=== PATIENT | female | born 1940 | race African-American/Black ===

== ENCOUNTER 2020-05-19 16:19 | Emergency (ER) | payer MEDICARE, OTHER ==
[~2020-05-19] VITALS: Ht 162.6 cm; Wt 61.2 kg
[~2020-05-19 16:19] MED LIST: ASPIR-LOW81 MG PO; ATENOLOL100 MG PO; BENADRYL25 MG ORAL; CALCIUM MAGNES1 EAC2 PO; FOLIC ACID0.4 MG ORAL; HYZAAR 100-12.1 EACH PO; IBUPROFEN600 MG ORAL; IBUPROFEN600 MG PO; LIPITOR20 MG PO; MEDROL DOSEPAK4 MG PO; NORCO 5-325 TA1 EACH ORAL; PERCOCET 5-3251 EACH ORAL; PREDNISONE20 MG ORAL; SOMA350 MG PO; VALIUM5 MG ORAL; VICODIN 5-5001 EACH PO; VITAMIN B COMP1 EAC2 ORAL; VITAMIN B-121000 MCG PO; VITAMIN D32000 UNI2 PO
--- NOTE | 2020-05-19 16:58 | NUR ---
ED Nurse Note: Patient presents to ER due to right arm/hand swelling x 2 weeks; reports no injury. Patient has swelling over the right hand/arm without redness or warmth. Patient c/o 4/10, pain on the right wrist. Guarding the area noted. Reports no CP, SOB or dyspnea. Reports no swelling in BLE. Patient awake, alert, oriented x 4. Regular, unlabored breathing noted. Awaiting for vascular u/s.
[2020-05-19] MEDS ORDERED: VITAMIN D3 COM1 EACH PO (17:19)
[2020-05-19] MEDS ORDERED: NIFEDIPINE ER60 M3 ORAL (17:19)
--- NOTE | 2020-05-19 18:03 | NUR ---
ED Nurse Note: U/S tech at bedside.
--- NOTE | 2020-05-19 18:06 | Diagnostic Imaging Report ---
Indication: Pain, swelling Technique: 3 views hand Comparison: none Findings: There is degenerative narrowing an proliferative change of the proximal and distal interphalangeal joints. No acute fractures. No dislocations. Bones are osteoporotic. Impression: No acute bony trauma Degenerative changes, as described
--- NOTE | 2020-05-19 18:29 | Emergency Room Report ---
History of Present Illness General Chief Complaint: Edema Source: Patient Present Illness HPI 79-year-old female presents complaining of right hand swelling. States swelling started a few weeks ago. Denies any fall or injury. Pain is dull, 4 out of 10, nonradiating. Denies fevers or chills. No other aggravating relieving factors. 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: No Patient History Past Medical History: HTN Past Surgical History: none Pertinent Family History: none Social History: Denies: smoking, alcohol use, drug use Last Menstrual Period: na Now: No Immunizations: UTD Reviewed Nursing Documentation: PMH: Agreed; PSxH: Agreed Nursing Documentation-PMH Past Medical History: No History, Except For Hx Hypertension: Yes Hx Neurological Problems: Yes - Chronic back pain since 2011 Review of Systems All Other Systems: negative except mentioned in HPI Physical Exam Vital Signs Date Time Temp Pulse Resp B/P (MAP) Pulse Ox O2 Delivery O2 Flow Rate FiO2 05/19/20 16:26 97.5 65 15 190/88 (122) 97 Room Air Sp02 EP Interpretation: reviewed, normal General Appearance: no apparent distress, alert, GCS 15, non-toxic Head: normocephalic, atraumatic Eyes: bilateral eye normal inspection, bilateral eye PERRL ENT: hearing grossly normal, normal pharynx, no angioedema, normal voice Neck: full range of motion, supple/symm/no masses Respiratory: chest non-tender, lungs clear, normal breath sounds, speaking full sentences Cardiovascular #1: regular rate, rhythm, no edema Cardiovascular #2: 2+ carotid (R), 2+ carotid (L), 2+ radial (R), 2+ radial (L), 2+ dorsalis pedis (R), 2+ dorsalis pedis (L) Gastrointestinal: normal bowel sounds, non tender, soft, non-distended, no guarding, no rebound Rectal: deferred Genitourinary: normal inspection, no CVA tenderness Musculoskeletal: back normal, normal range of motion, gait/station normal, swelling - R hand Neurologic: alert, motor strength/tone normal, oriented x3, sensory intact, responsive, speech normal Psychiatric: judgement/insight normal, memory normal, mood/affect normal, no suicidal/homicidal ideation Reflexes: 3+ bicep (R), 3+ bicep (L), 3+ tricep (R), 3+ tricep (L), 3+ knee (R), 3+ knee (L) Lymphatic: no adenopathy Procedures Critical Care Time Critical Care Time i. I feel this is a highly complex case requiring extensive working including EKG/Rhythm strip, Xray/CT/US, Blood/urine lab work, repeat exams while in ED,and administration of strong opiates/narcotics for pain control, admission to hospital or close patient follow up. Total time: 30 min bedside evaluation and treatment excludes procedures (EKG). Reason for critical care: hypertension Possible complications: hypotension, hypertension, IA, shock, arrhythmias, metabolic acidosis, end organ damage, respiratory failure. Interventions: clonidine, reassessment of vitals Course: Presenting with hand swelling. Venous duplex shows DVT in axillary vein. Labs drawn. BP systolic over 200. Given clonidine x2 with BP improved Consultations: nursing staff, EMS, family Performed by: Dr Oliver Tolerated well condition = serious j. because of unstable vital signs this patient had a condition that could potentially threaten life or limb. I feel this is a critical patient who required my full attention while patient was considered critical. Total Critical Care Time excluding procedures was greater than 35 minutes Medical Decision Making Diagnostic Impression: Primary Impression: DVT of axillary vein, acute Qualified Codes: I82.A11 - Acute embolism and thrombosis of right axillary vein Additional Impression: Hypertension Qualified Codes: I10 - Essential (primary) hypertension ER Course Hospital Course 79-year-old female presents ED with R hand pain and swelling. Differential diagnoses include: DVT, cellulitis, contusion, abscess Clinical course Patient placed on stretcher after initial history and physical I ordered Xray DVT ultrasound. xray shows significant DJD no fx Ultrasound shows acute thrombus in axillary vein Labs reviewed- no, electrolytes okay, hemoglobin/hematocrit stable , coags ok BP initially elevated. Improved after clonidine. Patient given Lovenox in ED. because of insurance patient will be transferred I. I feel this is a highly complex case requiring extensive working including EKG/Rhythm strip, Xray/CT/US, Blood/urine lab work, repeat exams while in ED, and administration of strong opiates/narcotics for pain control, admission to hospital or close patient follow up. Diagnosis - DVT of axillary vein, hypertension Transferred in serious condition Laboratory Tests Test 05/19/20 19:20 White Blood Count 6.6 K/UL (4.8-10.8) Red Blood Count 4.21 M/UL (4.20-5.40) Hemoglobin 12.3 G/DL (12.0-16.0) Hematocrit 38.3 % (37.0-47.0) Mean Corpuscular Volume 91 FL (80-99) Mean Corpuscular Hemoglobin 29.2 PG (27.0-31.0) Mean Corpuscular Hemoglobin Concent 32.1 G/DL (32.0-36.0) Red Cell Distribution Width 13.3 % (11.6-14.8) Platelet Count 194 K/UL (150-450) Mean Platelet Volume 9.0 FL (6.5-10.1) Neutrophils (%) (Auto) 62.8 % (45.0-75.0) Lymphocytes (%) (Auto) 29.6 % (20.0-45.0) Monocytes (%) (Auto) 4.3 % (1.0-10.0) Eosinophils (%) (Auto) 2.0 % (0.0-3.0) Basophils (%) (Auto) 1.2 % (0.0-2.0) Prothrombin Time 10.5 SEC (9.30-11.50) Prothromb Time International Ratio 0.9 (0.9-1.1) Activated Partial Thromboplast Time 19 SEC (23-33) L Sodium Level 141 MMOL/L (136-145) Potassium Level 3.3 MMOL/L (3.5-5.1) L Chloride Level 104 MMOL/L (98-107) Carbon Dioxide Level 28 MMOL/L (21-32) Anion Gap 10 mmol/L (5-15) Blood Urea Nitrogen 12 mg/dL (7-18) Creatinine 0.9 MG/DL (0.55-1.30) Estimat Glomerular Filtration Rate > 60 mL/min (>60) Glucose Level 98 MG/DL (74-106) Calcium Level 10.0 MG/DL (8.5-10.1) Total Bilirubin 0.6 MG/DL (0.2-1.0) Aspartate Amino Transf (AST/SGOT) 19 U/L (15-37) Alanine Aminotransferase (ALT/SGPT) 9 U/L (12-78) L Alkaline Phosphatase 74 U/L (46-116) Total Protein 8.0 G/DL (6.4-8.2) Albumin 3.8 G/DL (3.4-5.0) Globulin 4.2 g/dL Albumin/Globulin Ratio 0.9 (1.0-2.7) L Other X-Ray Diagnostic Results Other X-Ray Diagnostic Results : X-Ray ordered: R hand # of Views/Limited Vs Complete: 3 View Indication: Pain EP Interpretation: Yes Interpretation: no dislocation, no soft tissue swelling, no fractures Impression: No acute disease Electronically Signed by: Electronically signed by Salazar Oliver MD Last Vital Signs Date Time Temp Pulse Resp B/P (MAP) Pulse Ox O2 Delivery O2 Flow Rate FiO2 05/19/20 17:11 14 Room Air 05/19/20 16:26 97.5 65 190/88 (122) 97 Status: improved Disposition: SHORT-TERM HOSP Condition: Serious Referrals: [facility],REFERRING (PCP) Salazar Oliver MD May 19, 2020 18:29
[2020-05-19 18:45] VITALS: BP 202/85
--- NOTE | 2020-05-19 18:45 | NUR ---
ED Nurse Note: Dr. Noel notified that RN checked BP x 2 and it was 202/85 with HR 60 and 204/84 with HR 59. Reports no CP, headache, dizziness or blurry vision. Patient took Atenolol 50mg in the morning.
--- NOTE | 2020-05-19 19:02 | Diagnostic Imaging Report ---
EXAM: US Duplex Right Upper Extremity Veins CLINICAL HISTORY: SWELL TECHNIQUE: Real-time duplex ultrasound scan of the right upper extremity veins integrating B-mode two-dimensional vascular structure, Doppler spectral analysis, color flow Doppler imaging and compression. COMPARISON: None FINDINGS: Deep veins: Nonocclusive thrombus in the right axillary vein near the valves. Superficial veins: Unremarkable. No thrombus in the visualized basilic and cephalic veins. Soft tissues: No acute findings. IMPRESSION: Nonocclusive thrombus in the right axillary vein near the valves. <MYCVCSECTION> Communications: 05/19/20 19:02 Call Doctor Regarding Acute DVT, called Melody PAL on 05/19 19:02 (-07:00)
--- NOTE | 2020-05-19 19:11 | NUR ---
ED Nurse Note: Report given to Francesco Sims RN. Patient resting in bed. Bed in lowest position.
--- NOTE | 2020-05-19 19:28 | NUR ---
ED Nurse Note: received patient from black ghosh. patient resting in bed with no acute distress. reported pain on right hand; denies need for analgesics. refused to wear gown. iv access established. blood collected; sent down to lab. discussed plan of care with patient; aware of pending admission.
[2020-05-19 20:11] LABS: BASOPHILS % (AUTO) 1.2 % (0.0-2.0); HEMATOCRIT 38.3 % (37.0-47.0); HEMOGLOBIN 12.3 G/DL (12.0-16.0); LYMPHOCYTES % (AUTO) 29.6 % (20.0-45.0); MEAN CORPUSCULAR VOLUME 91 FL (80-99); MONOCYTES % (AUTO) 4.3 % (1.0-10.0); NEUTROPHILS % (AUTO) 62.8 % (45.0-75.0); PLATELET COUNT 194 K/UL (150-450); RED BLOOD COUNT 4.21 M/UL (4.20-5.40); RED CELL DISTRIBUTION WIDTH 13.3 % (11.6-14.8); WHITE BLOOD COUNT 6.6 K/UL (4.8-10.8)
[2020-05-19 20:24] LABS: ANION GAP 10 mmol/L (5-15); BLOOD UREA NITROGEN 12 mg/dL (7-18); CARBON DIOXIDE 28 MMOL/L (21-32); CHLORIDE 104 MMOL/L (98-107); CREATININE 0.9 MG/DL (0.55-1.30); POTASSIUM 3.3 MMOL/L (3.5-5.1); SODIUM 141 MMOL/L (136-145)
[2020-05-19 20:25] LABS: INR 0.9 (0.9-1.1)
--- NOTE | 2020-05-19 20:27 | NUR ---
GARY HERNANDEZ (DAUGHTER IN [employer]) - [phone]
[2020-05-19 20:28] LABS: ALANINE AMINOTRANSFERASE 9 U/L (12-78); ALBUMIN 3.8 G/DL (3.4-5.0); ALBUMIN/GLOBULIN RATIO 0.9 (1.0-2.7); ALKALINE PHOSPHATASE 74 U/L (46-116); ASPARTATE AMINO TRANSFERASE 19 U/L (15-37); BILIRUBIN,TOTAL 0.6 MG/DL (0.2-1.0)
[2020-05-19 20:39] VITALS: BP 174/70
[2020-05-19] MEDS ORDERED: Enoxaparin 60mg Inj SUBQ ONE (20:45)
[2020-05-19 21:43] VITALS: BP 135/58
--- NOTE | 2020-05-19 22:12 | NUR ---
ED Nurse Note: report givenserg squires rn. patient to be admitted to [place] [id number] under the care of deb hobson. transportation eta 2215 with [facility].
[2020-05-19 23:30] VITALS: BP 122/61
[2020-05-20] VITALS: BP 133/82
--- NOTE | 2020-05-20 | NUR ---
ED Nurse Note: report given to [facility]. patient left with belongings and transfer packet. courtesy call made to [facility], admitting facility, and family member that patient is en route.
== END 2020-05-20 | disposition short-term general hospital (02) ==
LOC: EMR 17:25
DX: I82.A11 Acute embolism and thrombosis of right axillary vein (principal); I10 Essential (primary) hypertension
CPT/HCPCS: 36415; 73130; 80053; 85025; 85610; 85730; 93971; 96372; 99291; J1650

== ENCOUNTER 2020-06-18 13:09 | Emergency (ER) | payer MEDICARE ==
[~2020-06-18] VITALS: Ht 162.6 cm; Wt 59.0 kg
[~2020-06-18 13:09] MED LIST changes: +NIFEDIPINE ER60 M3 ORAL; +VITAMIN D3 COM1 EACH PO
[2020-06-18 13:20] VITALS: BP 162/81
--- NOTE | 2020-06-18 14:56 | Emergency Room Report ---
History of Present Illness General Chief Complaint: Upper Extremity Injury Source: Patient (Erickson Reynoso MD) Present Illness HPI 79-year-old female presents to ED with right hand swelling. Was seen here last month and diagnosed with DVT. Was admitted to the hospital. States she has been treated on Eliquis. States that the swelling is overall lower but she still has some swelling. Was advised by her PMD practitioner to come in. Denies pain. Denies chest pain or shortness of breath. States she is compliant with her Eliquis. No other aggravating relieving factors. Denies any other associated symptoms (Salazar Oliver MD) Allergies: Coded Allergies: No Known Allergies (Unverified , 09/29/12) COVID-19 Screening Contact w/high risk pt: No Experienced COVID-19 symptoms?: No COVID-19 Testing performed ENVIRONMENTAL SPECIALIST: No (Erickson Reynoso MD) Patient History Now: No (Erickson Reynoso MD) Past Medical History: other - DVT Past Surgical History: none Pertinent Family History: none Social History: Denies: smoking, alcohol use, drug use Now: No Immunizations: UTD Reviewed Nursing Documentation: PMH: Agreed; PSxH: Agreed (Salazar Oliver MD) Nursing Documentation-PMH Hx Hypertension: Yes Hx Neurological Problems: Yes - Chronic back pain since 2011 (Erickson Reynoso MD) Review of Systems All Other Systems: negative except mentioned in HPI (Salazar Oliver MD) Physical Exam Vital Signs Date Time Temp Pulse Resp B/P (MAP) Pulse Ox O2 Delivery O2 Flow Rate FiO2 06/18/20 13:14 98.8 71 19 169/84 (112) 98 Room Air (Erickson Reynoso MD) Sp02 EP Interpretation: reviewed, normal General Appearance: no apparent distress, alert, GCS 15, non-toxic Head: normocephalic, atraumatic Eyes: bilateral eye normal inspection, bilateral eye PERRL ENT: hearing grossly normal, normal pharynx, no angioedema, normal voice Neck: full range of motion, supple/symm/no masses Respiratory: chest non-tender, lungs clear, normal breath sounds, speaking full sentences Cardiovascular #1: regular rate, rhythm, no edema Cardiovascular #2: 2+ carotid (R), 2+ carotid (L), 2+ radial (R), 2+ radial (L), 2+ dorsalis pedis (R), 2+ dorsalis pedis (L) Gastrointestinal: normal bowel sounds, non tender, soft, non-distended, no guarding, no rebound Rectal: deferred Genitourinary: normal inspection, no CVA tenderness Musculoskeletal: back normal, normal range of motion, gait/station normal, swelling - Right hand. No erythema or induration Neurologic: alert, motor strength/tone normal, oriented x3, sensory intact, responsive, speech normal Psychiatric: judgement/insight normal, memory normal, mood/affect normal, no suicidal/homicidal ideation Reflexes: 3+ bicep (R), 3+ bicep (L), 3+ tricep (R), 3+ tricep (L), 3+ knee (R), 3+ knee (L) Skin: no rash Lymphatic: no adenopathy (Salazar Oliver MD) Medical Decision Making Diagnostic Impression: Primary Impression: Swelling of joint, hand, right Additional Impression: DVT of axillary vein, acute ER Course Patient was endorsed to me by prior physician pending ultrasound imaging. Ultrasound of the right upper extremity showed continued DVT. Patient was noted to be on anticoagulation. She advised not to tightly wrap her upper extremity. She was advised to return for recheck either to her doctor or to this emergency department. She is advised to return if worse. Patient is advised to return if any worsening condition or if any changes in status that are concerning. This report is dictated with [employer] bacteriologist soil software which may occasionally lead to discrepancies related to use of this software. (Erickson Reynoso MD) Last Vital Signs Date Time Temp Pulse Resp B/P (MAP) Pulse Ox O2 Delivery O2 Flow Rate FiO2 06/18/20 13:20 98.6 79 19 162/81 98 Room Air Status: improved (Erickson Reynoso MD) Disposition: HOME, SELF-CARE Condition: Stable Patient Instructions: Deep Vein Thrombosis Additional Instructions: Follow up with your doctor for recheck. Continue your anticoagulation. Return if worse. Erickson Reynoso MD Jun 18, 2020 14:56 Salazar Oliver MD Jun 18, 2020 15:01
[2020-06-18 15:05] VITALS: BP 158/83
--- NOTE | 2020-06-18 16:00 | Diagnostic Imaging Report ---
Indication: Right arm pain, edema, history of prior thrombosis Technique: Grayscale and duplex images of the right upper extremity veins Comparison: 05/19/2020 Findings: Incompletely occlusive mural thrombus is seen within the right axillary vein. This is somewhat less conspicuous than was evident previously. This results in decreased compressibility. There may be upper extremity venous segments are patent, without evidence of thrombus. Normal color and pulse Doppler signal. Impression: Incompletely occlusive, likely chronic, thrombus within the right axillary vein. Similar findings are evident on prior study of 05/19/2020. This most likely represents residual chronic thrombus.
== END 2020-06-18 15:05 | disposition home or self-care (01) ==
LOC: EMR 13:55
DX: I82.A11 Acute embolism and thrombosis of right axillary vein (principal); R22.31 Localized swelling, mass and lump, right upper limb; Z79.01 Long term (current) use of anticoagulants; I10 Essential (primary) hypertension
CPT/HCPCS: 93971; 99283